=== PATIENT | male | born 1940 | race Caucasian/White ===

== ENCOUNTER → 2016-12-31 | Outpatient (CLI) | payer OTHER ==
[~2016-12-31] MED LIST: ASPCH81X PO; ATOR-22 PO; CARV12.52 PO; FINA5TAB PO; MAGN1TAB21 PO; MELA1TAB5 PO; OXYC7.5T65 PO; PRLSR20 PO
[2016-12-31 14:43] LABS: BASO % 0.5 %; BASO ABS # 0.03 K/uL (0-0.2); COMPLETE YES; HEMATOCRIT 40.4 % (42-52); IG% 0.2 %; LYMPH % 33.4 %; LYMPH ABS # 2.05 K/uL (1.2-3.4); MEAN CELL VOLUME 91.4 fL (80-100); MEAN CORPUSCULAR HEMOGLOBIN 31.9 pg (25-34); MEAN CORPUSCULAR HGB CONC 34.9 g/dl (32-36); MEAN PLATELET VOLUME 12.4 fL (7.4-10.4); MONO % 10.8 %; NEUT % 53.1 %; PLATELET COUNT 173 K/uL (130-400); RED BLOOD COUNT 4.42 M/uL (4.7-6.1); WHITE BLOOD COUNT 6.13 K/uL (4.8-10.8)
[2016-12-31 15:29] LABS: ALB/GLOB RATIO 1.1 (0.9-2); ALKALINE PHOSPHATASE 89 U/L (45-117); ALT/SGPT 45 U/L (12-78); AST/SGOT 30 U/L (15-37); BLOOD UREA NITROGEN 19 mg/dl (7-18); BUN/CREATININE RATIO 19.3 (10-20); CALCIUM 8.5 mg/dl (8.5-10.1); CARBON DIOXIDE 28 mmol/L (21-32); CHLORIDE 108 mmol/L (98-107); CREATININE 0.99 mg/dl (0.60-1.40); FERRITIN 100.8 ng/ml (8.0-388.0); GLUCOSE 103 mg/dl (70-99); POTASSIUM 3.9 mmol/L (3.5-5.1); SODIUM 144 mmol/L (136-145); TOTAL IRON BINDING CAPACITY 325 mcg/dl (250-450)
[2016-12-31 15:30] LABS: MAGNESIUM 0.6 mg/dl (1.8-2.4)
[2016-12-31 16:03] LABS: ESTIMATED AVERAGE GLUCOSE 117 mg/dl; HA1C FLAG Normal (Normal)
--- NOTE | 2017-01-04 09:17 | CODING QUERY MEDICAL NECESSITY ---
SUPPORTING DIAGNOSIS NEEDED Dr. Gallegos, A supporting diagnosis is required for the test/procedure performed on this patient in order for us to be reimbursed by the patient's insurance. Please provide a supporting diagnosis for the following test/procedure listed below next to the test name along with your signature. *If there is no additional diagnosis for this patient that would support the following test/procedure please document that below next to the test/procedure. Test(s)/Procedure(s) that require a supporting diagnosis: * ([id number]) B12 VITAMIN LEVEL DIAGNOSIS: DATE OF SERVICE: 12/31/16 Provider Signature: Date: Thank you Francis Angel [place] [employer] Once completed, please kindly fax back to [phone] For questions please call [phone]
== END | disposition home or self-care (01) ==
LOC: C.LAB 13:36
PROVIDERS: ATTEND Internal Medicine
DX: Z00.00 Encounter for general adult medical examination without abnormal findings (principal); E83.42 Hypomagnesemia; E87.6 Hypokalemia; D64.9 Anemia, unspecified; R73.01 Impaired fasting glucose; R74.8 Abnormal levels of other serum enzymes; D72.829 Elevated white blood cell count, unspecified

== ENCOUNTER → 2017-03-07 | Outpatient (CLI) | payer OTHER ==
--- NOTE | 2017-03-07 16:46 | DIAGNOSTIC IMAGING REPORT ---
[facility] CLINICAL HISTORY: Nephrolithiasis. FINDINGS: 2 AP supine abdominal radiographs are compared to study dated 11/09/2016. There is a nonobstructed abdominal bowel gas pattern. A small cluster of calcifications projects over the right kidney. These measure up to 5 mm. No calcifications are seen projecting over the left kidney or along the course of the ureters. Numerous calcified phleboliths are noted in the pelvis. The skeletal structures are osteopenic and there is mild lumbosacral spondylosis. IMPRESSION: Right-sided renal calculi as above. Electronically signed by: Damon Sorto M.D. 03/07/2017 4:44 PM Dictated Date/Time: 03/07/2017 4:43 PM
== END | disposition home or self-care (01) ==
LOC: C.RAD 16:08
PROVIDERS: ATTEND Urology
DX: N20.0 Calculus of kidney (principal)

== ENCOUNTER → 2018-01-23 | Outpatient (CLI) | payer OTHER ==
[~2018-01-23] MED LIST changes: -OXYC7.5T65 PO
[2018-01-23 16:22] LABS: HEMOGLOBIN A1C 5.5 % (4.5-5.6)
[2018-01-23 16:29] LABS: ALBUMIN 3.7 gm/dl (3.4-5.0); ALKALINE PHOSPHATASE 76 U/L (45-117); ALT/SGPT 30 U/L (12-78); AST/SGOT 28 U/L (15-37); BLOOD UREA NITROGEN 21 mg/dl (7-18); CALCIUM 8.8 mg/dl (8.5-10.1); CARBON DIOXIDE 30 mmol/L (21-32); CHOLESTEROL 118 mg/dl (0-200); CREATININE 1.01 mg/dl (0.60-1.40); GLUCOSE 107 mg/dl (70-99); LDL CHOLESTEROL CALCULATED 61 mg/dl; POTASSIUM 3.9 mmol/L (3.5-5.1); SODIUM 139 mmol/L (136-145)
== END | disposition home or self-care (01) ==
LOC: C.LAB 14:16
PROVIDERS: ATTEND Internal Medicine
DX: Z00.00 Encounter for general adult medical examination without abnormal findings (principal); I10 Essential (primary) hypertension; R73.01 Impaired fasting glucose; N40.1 Benign prostatic hyperplasia with lower urinary tract symptoms; I25.10 Atherosclerotic heart disease of native coronary artery without angina pectoris; E83.42 Hypomagnesemia

== ENCOUNTER → 2018-03-09 | Outpatient (CLI) | payer OTHER ==
--- NOTE | 2018-03-09 14:44 | DIAGNOSTIC IMAGING REPORT ---
KUB CLINICAL HISTORY: Nephrolithiasis. FINDINGS: 2 AP supine abdominal radiographs are compared to study dated 03/07/2017. There is a nonobstructed abdominal bowel gas pattern. There is moderate colonic fecal retention. Small retrocrural calculi are similar to previous and measure up to 5 mm. No calcifications are seen projecting over the left kidney or along the course of the ureters. Numerous calcified phleboliths are noted in the pelvis. The skeletal structures are osteopenic and there is mild lumbosacral spondylosis. IMPRESSION: Right-sided renal calculi as above, not appreciably changed from 03/07/2017. Electronically signed by: Damon Sorto M.D. 03/09/2018 2:42 PM Dictated Date/Time: 03/09/2018 2:41 PM
== END | disposition home or self-care (01) ==
LOC: C.RAD 14:26
PROVIDERS: ATTEND Urology
DX: N20.0 Calculus of kidney (principal)